=== PATIENT | female | born 1940 | race Caucasian/White ===

== ENCOUNTER 2019-12-02 17:19 | Outpatient (RCR) | payer MEDICARE, SELFPAY ==
[2019-09-30 15:13] LABS: INR 2.8; Prothrombin Time 28.9 Seconds (11.1-14.7)
[2019-11-02 13:27] LABS: Prothrombin Time 30.9 Seconds (11.1-14.7)
[2019-12-02 18:01] LABS: INR 2.6; Prothrombin Time 27.4 Seconds (11.1-14.7)
== END 2019-12-29 23:59 | disposition home or self-care (01) ==
LOC: ANHLAB 17:19
PROVIDERS: PCP Family Medicine Adolescent Medicine; Visit Provider Specialist
DX: Z51.81 Encounter for therapeutic drug level monitoring (principal); I48.20 Chronic atrial fibrillation, unspecified; Z79.01 Long term (current) use of anticoagulants
CPT/HCPCS: 36415; 85610

== ENCOUNTER 2020-02-10 15:24 | Outpatient (RCR) | payer MEDICARE, SELFPAY ==
[2020-01-06 17:22] LABS: INR 2.5; Prothrombin Time 26.7 Seconds (11.1-14.7)
[2020-02-10 16:00] LABS: INR 2.3; Prothrombin Time 25.2 Seconds (11.1-14.7)
== END 2020-04-05 23:59 | disposition home or self-care (01) ==
LOC: ANHLAB 15:24
PROVIDERS: PCP Family Medicine Adolescent Medicine; Visit Provider Specialist
DX: Z51.81 Encounter for therapeutic drug level monitoring (principal); I48.20 Chronic atrial fibrillation, unspecified; Z79.01 Long term (current) use of anticoagulants
CPT/HCPCS: 36415; 85610

== ENCOUNTER 2020-07-10 13:43 | Outpatient (RCR) | payer MEDICARE, SELFPAY ==
[2020-04-21 12:29] LABS: INR 2.8; Prothrombin Time 29.3 Seconds (11.1-14.7)
[2020-07-10 14:33] LABS: INR 2.8; Prothrombin Time 28.7 Seconds (11.1-14.7)
[2020-07-10 14:41] LABS: Alanine Aminotransferase 17 U/L (4-35); Albumin Level 3.3 g/dL (3.5-5.1); Alkaline Phosphatase 83 U/L (38-126); Anion Gap 4 mmol/L (8-16); Aspartate Amino Transferase 22 U/L (14-36); Bilirubin,Total 0.5 mg/dL (0.2-1.3); Blood Urea Nitrogen 26 mg/dL (7-17); Calcium 9.4 mg/dL (8.4-10.2); Carbon Dioxide 33 mmol/L (22-30); Chloride 102 mmol/L (98-107); Cholesterol 131 mg/dL (0-200); Estimated Glomerular Filt Rate > 60; Glucose 97 mg/dL (65-105); HDL Direct 38 mg/dL; Sodium 139 mmol/L (137-145); Triglycerides 110 mg/dL (<150)
[2020-07-10 14:51] LABS: LDL Cholesterol Direct 66 mg/dL
== END 2020-07-20 23:59 | disposition home or self-care (01) ==
LOC: ANHLAB 13:43
PROVIDERS: PCP Family Medicine Adolescent Medicine; Referring Provider Family Medicine Adolescent Medicine; Visit Provider Specialist
DX: I48.20 Chronic atrial fibrillation, unspecified (principal); Z79.01 Long term (current) use of anticoagulants; I10 Essential (primary) hypertension; E78.00 Pure hypercholesterolemia, unspecified; R73.01 Impaired fasting glucose
CPT/HCPCS: 36415; 80053; 80061; 83036; 85610

== ENCOUNTER 2020-10-31 11:33 | Outpatient (RCR) | payer MEDICARE, SELFPAY ==
[2020-08-15 14:53] LABS: Hemoglobin A1C 5.1 % (<5.7)
[2020-08-15 14:54] LABS: INR 2.6
[2020-08-15 14:59] LABS: Alanine Aminotransferase 16 U/L (4-35); Albumin Level 3.6 g/dL (3.5-5.1); Alkaline Phosphatase 78 U/L (38-126); Anion Gap 4 mmol/L (8-16); Aspartate Amino Transferase 22 U/L (14-36); Bilirubin,Total 0.4 mg/dL (0.2-1.3); Blood Urea Nitrogen 29 mg/dL (7-17); Calcium 9.5 mg/dL (8.4-10.2); Carbon Dioxide 30 mmol/L (22-30); Chloride 103 mmol/L (98-107); Cholesterol 144 mg/dL (0-200); Estimated Glomerular Filt Rate > 60; Glucose 93 mg/dL (65-105); HDL Direct 39 mg/dL; Potassium 4.2 mmol/L (3.4-5.0); Sodium 137 mmol/L (137-145); Triglycerides 102 mg/dL (<150)
[2020-08-15 15:11] LABS: LDL Cholesterol Direct 72 mg/dL
[2020-10-04 16:19] LABS: Prothrombin Time 23.3 Seconds (11.1-14.7)
[2020-10-04 16:22] LABS: Alanine Aminotransferase 21 U/L (4-35); Albumin Level 3.7 g/dL (3.5-5.1); Alkaline Phosphatase 89 U/L (38-126); Anion Gap 5 mmol/L (8-16); Aspartate Amino Transferase 28 U/L (14-36); Bilirubin,Total 0.6 mg/dL (0.2-1.3); Blood Urea Nitrogen 30 mg/dL (7-17); Calcium 9.8 mg/dL (8.4-10.2); Carbon Dioxide 35 mmol/L (22-30); Chloride 101 mmol/L (98-107); Cholesterol 140 mg/dL (0-200); Estimated Glomerular Filt Rate > 60; Glucose 97 mg/dL (65-105); HDL Direct 39 mg/dL; Potassium 4.1 mmol/L (3.4-5.0); Sodium 141 mmol/L (137-145); Triglycerides 83 mg/dL (<150)
[2020-10-04 16:33] LABS: LDL Cholesterol Direct 71 mg/dL
[2020-10-04 18:05] LABS: Hemoglobin A1C 4.9 % (<5.7)
[2020-10-31 12:22] LABS: INR 2.2; Prothrombin Time 25.3 Seconds (11.1-14.7)
== END 2020-11-13 23:59 | disposition home or self-care (01) ==
LOC: ANHLAB 11:33
PROVIDERS: PCP Family Medicine Adolescent Medicine; Visit Provider Specialist
DX: Z51.81 Encounter for therapeutic drug level monitoring (principal); I10 Essential (primary) hypertension; I48.20 Chronic atrial fibrillation, unspecified; E78.00 Pure hypercholesterolemia, unspecified; R73.01 Impaired fasting glucose; Z79.01 Long term (current) use of anticoagulants
CPT/HCPCS: 36415; 80053; 80061; 83036; 85610

== ENCOUNTER 2021-01-21 13:46 | Outpatient (RCR) | payer MEDICARE, SELFPAY ==
[2020-12-06 17:05] LABS: INR 2.6; Prothrombin Time 28.2 Seconds (11.1-14.7)
[2021-01-21 14:41] LABS: INR 1.8; Prothrombin Time 21.4 Seconds (11.1-14.7)
== END 2021-03-06 23:59 | disposition home or self-care (01) ==
LOC: ANHLAB 13:46
PROVIDERS: PCP Family Medicine Adolescent Medicine; Visit Provider Specialist
DX: Z51.81 Encounter for therapeutic drug level monitoring (principal); I48.20 Chronic atrial fibrillation, unspecified; Z79.01 Long term (current) use of anticoagulants
CPT/HCPCS: 36415; 85610

== ENCOUNTER 2021-10-01 14:32 | Outpatient (CLI) | payer MEDICARE, SELFPAY ==
--- NOTE | ~2021-10-01 | MR_ITS ---
EXAMINATION: MR lumbar spine [facility] EXAM DATE: 10/01/2021 15:40 INDICATION: Right-sided lumbar radiculopathy. TECHNIQUE: Multi-sequential, multiplanar MR images of the lumbar spine were obtained without contrast . Sagittal T1, T2, T2 fat saturation images. Axial T2 weighted images. There is no prior study for comparison. FINDINGS: There is moderate thoracolumbar dextroscoliosis. The conus medullaris terminates at the L2 level and has normal signal intensity and morphology. There is 4 mm anterolisthesis L5 on S1 without spondylolysis suspected. The vertebral bodies are otherwise aligned. Moderate to severe disc disease from L2 through S1. There are no focal marrow signal abnormalities suspicious for malignancy or acut e fracture. Paraspinal soft tissue is unremarkable. Level by level evaluation: T12-L1: Disc does not extend beyond the endplate margin. Facet arthropathy: Mild. Neural foraminal stenosis: No stenosis. Central canal stenosis: No stenosis. L1-L2: Disc does not extend beyond the endplate margin. Facet arthropathy: Mild. Neural foraminal stenosis: No stenosis. Central canal stenosis: No stenosis. L2-L3: There is a mild to moderate diffuse disc bulge. Facet arthropathy: Mild. Neural foraminal stenosis: Mild to moderate left. Central canal stenosis: Mild. L3-L4: There is a mild to moderate diffuse disc bulge. Facet arthropathy: Mild to moderate. Neural foraminal stenosis: Mild to moderate left. Central canal stenosis: Mild. L4-L5: There is a mild to moderate diffuse disc bulge. Facet arthropathy: Mild to moderate. Neural foraminal stenosis: Moderate to severe right, mild left. Central canal stenosis: Mild. L5-S1: There is a mild diffuse disc bulge. Facet arthropathy: Severe. Neural foraminal stenosis: Mild to moderate right, mild left. Central canal stenosis: Mild. IMPRESSION: 1. Moderate thoracolumbar dextroscoliosis. 2. Moderate to severe disc disease L2-S1. 3. L5-S1 grade 1 anterolisthesis without spondylolysis. 4. L4-5 moderate to severe right neural foraminal stenosis. Reviewed, dictated and finalized at location A.
== END 2021-10-01 14:33 | disposition home or self-care (01) ==
PROVIDERS: PCP Family Medicine Adolescent Medicine; Visit Provider Family Medicine Adolescent Medicine
DX: M51.37 Other intervertebral disc degeneration, lumbosacral region (principal); M47.26 Other spondylosis with radiculopathy, lumbar region
CPT/HCPCS: 72148

== ENCOUNTER 2021-10-15 13:08 | Outpatient (CLI) | payer MEDICARE, SELFPAY ==
[2021-10-15 14:02] LABS: INR 1.1; Prothrombin Time 13.9 Seconds (11.1-14.7)
== END 2021-10-15 13:09 | disposition home or self-care (01) ==
LOC: ANHLAB 10-29 14:42
PROVIDERS: PCP Family Medicine Adolescent Medicine; Visit Provider Nurse Practitioner Family
DX: Z51.81 Encounter for therapeutic drug level monitoring (principal); Z79.01 Long term (current) use of anticoagulants
CPT/HCPCS: 36415; 85610

== ENCOUNTER 2021-10-29 14:44 | Outpatient (CLI) | payer MEDICARE, SELFPAY ==
[2021-10-29 15:29] LABS: INR 1.2; Prothrombin Time 14.6 Seconds (11.1-14.7)
== END 2021-10-29 14:45 | disposition home or self-care (01) ==
LOC: ANHLAB 14:48
PROVIDERS: PCP Family Medicine Adolescent Medicine; Visit Provider Nurse Practitioner Family
DX: Z79.01 Long term (current) use of anticoagulants (principal)
CPT/HCPCS: 36415; 85610

== ENCOUNTER 2021-11-11 14:08 | Outpatient (RCR) | payer MEDICARE, SELFPAY ==
[2021-11-11 15:01] LABS: INR 1.4
== END 2022-02-09 23:59 | disposition home or self-care (01) ==
LOC: ANHLAB 14:08
PROVIDERS: PCP Family Medicine Adolescent Medicine; Visit Provider Specialist
DX: I48.91 Unspecified atrial fibrillation (principal)
CPT/HCPCS: 36415; 85610

== ENCOUNTER 2022-05-26 13:25 | Outpatient (CLI) | payer MEDICARE, SELFPAY ==
[2022-05-26 14:13] LABS: Hematocrit 43.9 % (37.0-47.0); Hemoglobin 14.4 g/dL (12.0-15.0); Mean Corpuscular HGB Conc 32.8 g/dl (32-36); Mean Corpuscular Hemoglobin 29.4 pg (26-34); Mean Corpuscular Volume 89.6 fl (80-100); Mean Platelet Volume 12.1 fl (7.4-10.4); Platelet Count Result 173 k/mm3 (150-375); Red Cell Distribution Width 13.7 % (11.5-14.5); White Blood Count 7.5 K/mm3 (4.5-10.0)
[2022-05-26 14:27] LABS: Hemoglobin A1C 5.1 % (<5.7)
== END 2022-05-26 13:26 | disposition home or self-care (01) ==
PROVIDERS: PCP Family Medicine Adolescent Medicine; Referring Provider Specialist; Visit Provider Family Medicine Adolescent Medicine
DX: E78.00 Pure hypercholesterolemia, unspecified (principal); I10 Essential (primary) hypertension; I48.20 Chronic atrial fibrillation, unspecified; R73.01 Impaired fasting glucose; Z79.01 Long term (current) use of anticoagulants; E66.01 Morbid (severe) obesity due to excess calories
CPT/HCPCS: 36415; 83036; 85027

== ENCOUNTER 2022-09-10 10:40 | Outpatient (CLI) | payer MEDICARE, SELFPAY ==
[2022-09-10 11:17] LABS: INR 1.1; Prothrombin Time 13.6 Seconds (11.1-14.7)
== END 2022-09-10 10:41 | disposition home or self-care (01) ==
LOC: ANHLAB 10:45
PROVIDERS: PCP Family Medicine Adolescent Medicine; Visit Provider Nurse Practitioner Family
DX: Z51.81 Encounter for therapeutic drug level monitoring (principal); Z79.01 Long term (current) use of anticoagulants
CPT/HCPCS: 36415; 85610

== ENCOUNTER 2023-05-09 19:17 | Inpatient (IN) | payer MEDICARE, SELFPAY ==
--- NOTE | ~2023-05-09 | XR_ITS ---
EXAMINATION: XR chest 1V portable INDICATION: Transient alteration of awareness TECHNIQUE: Portable AP chest at 2019 hours COMPARISON: 04/02/2007 FINDINGS: Cardiomegaly is noted. The lungs are free of acute opacities. No pleural effusion or pneumo thorax. There is a right subclavian Port-A-Cath. Severe thoracic spondylosis is noted. IMPRESSION: 1. Cardiomegaly. Reviewed, dictated and finalized at location F. IMPRESSION: 1. Cardiomegaly.
--- NOTE | ~2023-05-09 | CT_ITS ---
EXAMINATION: CT brain wo con INDICATION: Headache COMPARISON: None TECHNIQUE: Standard unenhanced head CT. The dose-length product (DLP) was 605.33 mGy-cm. The mA was a djusted according to patient size. Iterative reconstruction technique was employed. FINDINGS: There is no acute intraparenchymal hemorrhage. No evidence of mass lesion. No evidence of a cute infarction. There is mild periventricular and subcortical hypodensity probably related to small vessel ischemic disease. There is mild prominence of the sulci and ventricles related to cerebral atr ophy. Intracranial calcified cerebral atherosclerosis is noted. There are no extra-axial collections. There is no mass effect or midline shift. Changes in the globes are likely from ocular lens surgery. The visualized sinuses and mastoid air cells are well aerated. IMPRESSION: 1. No acute intracranial abnormality. 2. Age related findings. Reviewed, dictated and finalized at location F.
[2023-05-09 19:25] VITALS: BP 227/98; PULSE 98; RESP 26; TEMP 36.6; O2SAT 96
[2023-05-09 19:30] VITALS: PULSE 81
[2023-05-09 19:31] VITALS: RESP 13
--- NOTE | 2023-05-09 19:35 | ED.OVERDOSE ---
HPI - Overdose General Chief Complaint: Overdose Stated Complaint: difficult to rouse Time Seen by Provider: 05/09/23 19:34 Source: patient, family and EMS Mode of arrival: EMS Limitations: physical limitation History of Present Illness HPI Narrative: Patient is 83 years old white female who came to the emergency room by ambulance with her 2 daughters who is telling me that patient probably had overdose on 2 of her medications. No weakness that the patient had any 2 tablets for many minutes and. Patient started on Tessalon yesterday for coughing 200 3 times daily. Patient does not know if she started last night or not if she took 1 tablet or 2 tablets today or not basically does not know. Neither the daughter is. Patient finished eating, was sitting on the table then dropped her spoon and tilted to the right side. Her daughter tried to wake her up calling her name screaming at her without respond for roughly 5 minutes then woke up and replied what is going on, why you are screaming at me. Currently patient is awake, alert and oriented x3 does not know the name of the president. She denies any symptoms she is telling me that she had no new changes compared to before. Patient is wheelchair-bound for the last 2 years, lives with her daughters, managing her medications by herself.. When I showed the patient the bottles of medicine, to see which one she took, could not see it and was not able to read it because of vision problem which is chronic.. Basically there is no witnessed that the patient had overdose, patient cannot see the name of the medicine on the bottles, does not remember which bottle she took 2 tablets or not. . Related Data Home Medications Medication Instructions Recorded Confirmed furosemide 40 mg tablet 40 mg PO QAM 05/12/22 07/23/22 warfarin 5 mg tablet See Rx Instructions PO DAILY 05/12/22 07/23/22 Allergies Allergy/AdvReac Type Severity Reaction Status Date / Time cefprozil AdvReac Severe Diarrhea Verified 05/09/23 21:27 azithromycin [From Zithromax] AdvReac Unknown Diarrhea Verified 05/09/23 21:27 Review of Systems Review of Systems: All systems reviewed & are unremarkable except as noted in HPI and below PMFSH Past Medical History Medical History History of endometrial cancer Surgical History Surgical History History of cholecystectomy (2010) History of hysterectomy for cancer History of laparoscopic cholecystectomy Family History Family History Father Cerebrovascular accident Other Family history of cardiovascular disease Hypertension Social History Social History Smoking status: Never smoker Second hand tobacco smoke exposure: No Alcohol intake: never Substance use: never Substance use type: does not use Living arrangements: with family Occupation/Education: retired Gender identity (if verbalized by the patient): Female Sexual Orientation (if Verbalized by the Patient): Straight or Heterosexual Spiritual care concerns: No Agree to blood products: Yes Exam Narrative: General appearance: Well-developed, well-nourished, obese, looks lethargic Skin: Normal color Head: Normocephalic, nontraumatic Eyes: Clear conjunctiva ENT: Oropharynx normal, ears normal, nose normal Neck: Supple, nontender Chest and respiratory: Airway patent, no respiratory distress, no accessory muscle use Heart: Regular rate/rhythm Abdomen: Soft, nontender, no organomegaly, quiet bowel sounds Vascular: Normal peripheral pulses, normal capillary refill. Musculoskeletal: Normal range of motion, nontender back Neurologic: Alert and oriented ?3, [employer] is normal as tested, no gross motor deficit
--- NOTE | 2023-05-09 20:08 | ECG_ITS ---
Measurements Intervals Freedom Rate: 75 P: WA: 0 QRS: -49 QRSD: 110 T: 29 QT: 397 QTc: 444 Interpretive Statements ATRIAL FIBRILLATION MINIMAL VOLTAGE CRITERIA FOR LVH, CONSIDER NORMAL VARIANT [MEETS CRITERIA IN ONE OF: R(aVL), S(V1), R(V5), R(V5/V6)+S(V1)] POSSIBLE ANTERIOR MYOCARDIAL INFARCTION , PROBABLY OLD [30 ms Q WAVE IN V3/V4, OR R < 0.2 mV IN V4] POSSIBLE OLD iNFERIOR MYOCARDIAL INFARCTION NO PREVIOUS ECG AVAILABLE FOR COMPARISON Electronically Signed On 05-10-2023 8:36:20 CDT by Hyun Franklin M.D.
[2023-05-09] MEDS: LABETALOL HCL INJ 100 MG/20 ML VIAL 20 MG IV PUSH (22:04)
[2023-05-09 22:11] VITALS: BP 144/80; PULSE 74; RESP 17; O2SAT 93
[2023-05-09 23:07] LABS: Basophils Absolute Auto 0.1 K/mm3 (0.0-0.1); Basophils Percent Auto 0.8 % (0.2-1.2); Eosinophils Absolute Auto 0.2 K/mm3 (0-0.3); Eosinophils Percent Auto 2.4 % (0-4.4); Hematocrit 47.2 % (37.0-47.0); Hemoglobin 15.5 g/dL (12.0-15.0); Immature Granulocyte Absolute 0.02 K/mm3 (0.00-0.031); Immature Granulocyte Percent A 0.3 % (0-0.5); Lymphocytes Absolute Auto 0.68 K/mm3 (0.9-3.2); Lymphocytes Percent Auto 9.3 % (18.3-44.2); Mean Corpuscular HGB Conc 32.8 g/dl (32-36); Mean Corpuscular Hemoglobin 28.2 pg (26-34); Mean Platelet Volume 11.9 fl (7.4-10.4); Monocytes Absolute Auto 0.4 K/mm3 (0.1-0.6); Neutrophils Percent Auto 82.2 % (45.5-73.1); Platelet Count Result 165 k/mm3 (150-375); Red Blood Count 5.49 M/mm3 (4.2-5.4); Red Cell Distribution Width 15.5 % (11.5-14.5); White Blood Count 7.4 K/mm3 (4.5-10.0)
[2023-05-09 23:21] LABS: Alanine Aminotransferase 27 U/L (6-35); Albumin Level 3.7 g/dL (3.5-5.1); Alkaline Phosphatase 95 U/L (38-126); Anion Gap 0 mmol/L (8-16); Aspartate Amino Transferase 29 U/L (14-36); Bilirubin,Total 0.8 mg/dL (0.2-1.3); Blood Urea Nitrogen 33 mg/dL (7-17); Calcium 9.2 mg/dL (8.4-10.2); Carbon Dioxide 38 mmol/L (22-30); Chloride 97 mmol/L (98-107); Estimated CRCL calculation 73 ml/min; Estimated Glomerular Filt Rate > 60; Glucose 124 mg/dL (65-110); Potassium 3.5 mmol/L (3.4-5.0); Sodium 135 mmol/L (137-145)
[2023-05-09 23:25] LABS: INR 2.3; Prothrombin Time 26.7 Seconds (11.1-14.7)
[2023-05-09 23:26] LABS: Partial Thromboplastin Time 36.3 SECONDS (22.3-36.8)
[2023-05-09 23:33] LABS: Troponin I < 0.012 ng/mL (0.000-0.034)
[2023-05-09 23:46] LABS: Ethanol < 10 mg/dL (<10)
[2023-05-10] VITALS (13 sets, daily range): BP systolic 106–173; BP diastolic 65–96; PULSE 58–134; RESP 13–18; TEMP 36.2–36.3; O2SAT 93–98; BMI 41.5
--- NOTE | 2023-05-10 02:35 | PC.NURSE ---
Pt was straight catheterized and no urine was produced. Straight cath was left in for an hour to drain bladder, not enough urine was produced for testing. notified.
--- NOTE | 2023-05-10 03:35 | ADMGEN ---
This patient, Makenzie Benson, was admitted to 2 Medical Room 242-. Patient/family oriented to hospital policies and general routines including ID bracelet, bed and alarms, visiting hours, pain management, procedures, bathroom and other care routines, personal items, smoking policy, room service/diet, and visiting hours. Information on how to activate the Rapid Response Team has been discussed. Patient/Family are encouraged to report perceived risks to care and to ask questions if they do not understand what they are told or what they should do.
[2023-05-10] MEDS: SODIUM CHLORIDE 0.9% IV 1,000 ML 100 ML IV CONT ×2 (09:36→20:24)
[2023-05-10] MEDS: hydroCHLOROthiazide 25 MG TABLET PO (09:37)
[2023-05-10] MEDS: IRBESARTAN 150 MG TABLET 300 MG PO (09:37)
[2023-05-10] MEDS: MELOXICAM 7.5 MG TABLET 15 MG PO (09:37)
[2023-05-10] MEDS: oxyBUTYnin CHLORIDE XL 5 MG TAB.ER.24 10 MG PO (09:38)
[2023-05-10] MEDS: POTASSIUM CHLORIDE 20 MEQ ER TABLET PO (09:38)
--- NOTE | 2023-05-10 12:51 | PM.IMHP ---
H&P: HPI History of Present Illness Date/Time: 05/10/23 12:51 Chief Complaint: Difficulty arousing, near-syncope Narrative: This is an 83-year-old female with past medical history hypertension, vertigo, osteopenia, chronic AFib, and venous insufficiency the presented to the ED on 05/09/2023 due to being difficult to arouse. Patient's daughter believes that she overdosed on 2 of her medications as she took yesterday. daughter is unsure whether the patient took 1 or 2 tablets or not. Patient recently prescribed Tessalon Perles for coughing and she also takes diazepam. These are the medications in question. Daughters did not witness the overdose . Patient alert and oriented x4. Patient chronically wheelchair-bound and lives with her daughters but manages her own medications. Patient does have visual problems and unable to state the names of her medications on the bottles per ER chart. the daughter stated that she was very difficult to arouse and could not get her to respond for approximately 5 minutes. When the patient woke up she was alert and oriented. head CT revealed no acute intracranial abnormality. Chest x-ray revealed cardiomegaly. Patient admitted into observation. Alcohol level less than 10. Ordered urine drug screen and UA. Got notified by the nurse that patient had episode of bradycardia in the 30s for approximately 1 minute while sleeping. Will order ApneaLink an echocardiogram. Patient was able to arouse while she had heart rate in the 30s. On reviewing the patient she stated that she feels fine and she is feeling herself. She denies nausea, vomiting, chest pain, shortness a breath, dizziness, confusion, body aches and chills. Review of Systems Review of Systems: All systems reviewed & are unremarkable except as noted in HPI and below PMFSH Past Medical History Medical History History of endometrial cancer Surgical History Surgical History History of cholecystectomy (2010) History of hysterectomy for cancer History of laparoscopic cholecystectomy Family History Family History Father Family history of cardiovascular disease Hypertension Cerebrovascular accident Social History Social History Smoking status: Never smoker Second hand tobacco smoke exposure: No Alcohol intake: never Substance use: never Substance use type: does not use Lack of Transportation: No Lack of Food: Never True Current Housing: I Have Housing Concerned About Future Housing: No Difficulty Paying Gas/Electric Bills: No Difficulty Paying for Meds: No Currently Unemployed: No Education: Grade School Difficulty w/ Childcare or Family Care: No Living arrangements: with family Occupation/Education: retired Gender identity (if verbalized by the patient): Female Sexual Orientation (if Verbalized by the Patient): Straight or Heterosexual Spiritual care concerns: No Agree to blood products: Yes Meds Home Medications and Allergies Home Medications Medication Instructions Recorded Confirmed Type potassium chloride 20 mEq 20 meq PO DAILY #90 tabs 09/29/22 05/10/23 Rx tablet,extended release hydrochlorothiazide 25 mg tablet 25 mg PO DAILY #90 tabs 10/13/22 05/10/23 Rx irbesartan 300 mg tablet 300 mg PO DAILY #90 tabs 10/13/22 05/10/23 Rx meloxicam 15 mg tablet 15 mg PO DAILY #90 tabs 11/28/22 05/10/23 Rx calcitriol 0.5 mcg capsule 0.5 mcg PO DAILY #90 caps 02/10/23 05/10/23 Rx meclizine 25 mg tablet 25 mg PO QID PRN dizziness #35 tabs 02/12/23 05/10/23 Rx oxybutynin chloride 10 mg 10 mg PO DAILY #90 tabs 03/02/23 05/10/23 Rx tablet,extended release 24 hr diazepam 2 mg tablet 2 mg PO BID #60 tabs 04/13/23 05/10/23 Rx benzonatate 200 mg capsule 200 mg PO TID
[2023-05-10 13:47] LABS: Thyroid Stimulating Hormone Reflex 0.595 uIU/mL (0.465-4.68)
[2023-05-10 13:58] LABS: Benzodiazepines Screen Urine Positive (Negative)
[2023-05-10 14:03] LABS: Barbiturate Screen Urine Negative (Negative)
[2023-05-10 14:04] LABS: Appearance Urine Clear (Clear); Bacteria Urine 4+ /hpf; Bilirubin Urine Negative (Negative); Blood Urine Negative (Negative); Color Urine Yellow (Yellow); Glucose Urine UA Negative (Negative); Ketones Urine Negative (Negative); Leukocyte Esterase Ur Negative LEU/UL (Negative); Nitrate Urine Positive (Negative); Non Pathogenic Casts 0-2; Protein Urine Negative (Negative); RBC Urine 0-2 /hpf (0-2); Specific Grav Ur 1.011 (1.001-1.035); Squamous Epithelial Cell Urine None seen /hpf (Few); WBC Urine 0-5 /hpf
[2023-05-10 14:07] LABS: Add Urine Microscopic? YES
[2023-05-10 14:10] LABS: Amphetamine Screen Urine Negative (Negative); Cannabinoid Screen Urine Negative (Negative); Cocaine Screen Urine Negative (Negative); Methadone Screen Urine Negative (Negative); Opiate Screen Urine Negative (Negative); Phencyclidine Screen Urine Negative (Negative)
[2023-05-10] MEDS: WARFARIN (*PBKC) 5 MG TABLET PO (17:52)
[2023-05-11] VITALS (15 sets, daily range): BP systolic 133–193; BP diastolic 62–98; PULSE 72–92; RESP 15–20; TEMP 36–37; O2SAT 94–98
--- NOTE | 2023-05-11 | ECHO_ITS ---
Patient Info Name: Makenzie Benson Age: 83 years : 1940 Gender: Female Ht: 62 in Wt: 227 lbs BSA: 2.18 m2 HR: 82 bpm BP: 145 / 98 mmHg Technical Quality: Fair Exam Date: 05/11/2023 9:24 AM Exam Location: [facility] Pulmonary Exam Room: 242 Patient Status: Inpatient Admit Date: 05/10/2023 Staff Ordering Physician: Sofya Lawson PA-C [employer] Specialist: Esthela Bass RDCS Attending Provider: Radha Xavier DO Referring Physician: Renny COATS; Exam Type: CA echo dop color flow w con Study Info Indications - bradycardia Complete two-dimensional, color flow and Doppler transthoracic echocardiogram is performed with contrast to opacify the left ventricle and to improve the deliniation of the left ventricle endocardial borders. Contrast/Agitated Saline Contrast/Ag. Saline: Definity Amount: 2.00 ml Administered By: Esthela Bass [facility] Existing IV Access: Yes IV Access Condition: patent with no signs of infiltration Summary 1. Definity contrast administered improved wall motion interpretation. 2. Left ventricular chamber dimension is normal. 3. Left ventricular systolic function is normal, estimated at 60-65%. 4. The left ventricular diastolic function is abnormal. 5. E/e' 14 is mildly elevated. 6. Atrial fibrillation. 7. Left atrial chamber dimension is moderately enlarged. 8. There is mild aortic valve sclerosis. 9. There is mild mitral valve regurgitation. 10. There is mild tricuspid valve regurgitation. 11. Mild pulmonary hypertension, estimated pulmonary arterial systolic pressure is 42 mmHg. 12. There is trace pulmonic regurgitation. Left Ventricle Atrial fibrillation. E/e' 14 is mildly elevated. Definity contrast administered improved wall motion interpretation. Left ventricular chamber dimension is normal. Left ventricular systolic function is normal, estimated at 60-65%. The left ventricular diastolic function is abnormal. Right Ventricle Right ventricular chamber dimension is normal. Right ventricular systolic function is normal. Left Atria Left atrial chamber dimension is moderately enlarged. Right Atria Right atrial chamber dimension is normal. Aortic Valve The aortic valve is trileaflet. There is mild aortic valve sclerosis. There is no aortic valve stenosis. There is no aortic valve regurgitation. Pulmonic Valve There is trace pulmonic regurgitation. Mitral Valve There is no mitral valve stenosis. There is mild mitral valve regurgitation. Tricuspid Valve There is mild tricuspid valve regurgitation. Mild pulmonary hypertension, estimated pulmonary arterial systolic pressure is 42 mmHg. Pericardium/Pleural There is no pericardial effusion. Inferior Vena Cava Normal inferior vena cava with >50% collapse upon inspiration consistent with normal right atrial pressure, 5 mmHg. Aorta The aortic root size at the sinus of Valsalva is normal. Left Ventricular Outflow Tract Name Value Normal LVOT 2D LVOT Diameter 1.96 cm LVOT Doppler LVOT Peak Gradient 7 mmHg LVOT Mean Gradient 5 mmHg LVOT VTI 26.69 cm L
[2023-05-11 06:41] LABS: Basophils Absolute Auto 0.1 K/mm3 (0.0-0.1); Basophils Percent Auto 1.1 % (0.2-1.2); Eosinophils Absolute Auto 0.3 K/mm3 (0-0.3); Eosinophils Percent Auto 4.9 % (0-4.4); Hematocrit 43.2 % (37.0-47.0); Hemoglobin 14.1 g/dL (12.0-15.0); Immature Granulocyte Absolute 0.02 K/mm3 (0.00-0.031); Immature Granulocyte Percent A 0.3 % (0-0.5); Lymphocytes Absolute Auto 0.92 K/mm3 (0.9-3.2); Lymphocytes Percent Auto 14.1 % (18.3-44.2); Mean Corpuscular HGB Conc 32.6 g/dl (32-36); Mean Corpuscular Hemoglobin 28.5 pg (26-34); Mean Corpuscular Volume 87.4 fl (80-100); Mean Platelet Volume 11.5 fl (7.4-10.4); Monocytes Absolute Auto 0.6 K/mm3 (0.1-0.6); Neutrophils Absolute Auto 4.6 K/mm3 (1.3-6.7); Neutrophils Percent Auto 70.6 % (45.5-73.1); Platelet Count Result 145 k/mm3 (150-375); Red Blood Count 4.94 M/mm3 (4.2-5.4); White Blood Count 6.5 K/mm3 (4.5-10.0)
[2023-05-11 06:49] LABS: Alanine Aminotransferase 24 U/L (6-35); Alkaline Phosphatase 73 U/L (38-126); Anion Gap 0 mmol/L (8-16); Aspartate Amino Transferase 24 U/L (14-36); Bilirubin,Total 0.6 mg/dL (0.2-1.3); Blood Urea Nitrogen 29 mg/dL (7-17); Calcium 8.7 mg/dL (8.4-10.2); Carbon Dioxide 35 mmol/L (22-30); Chloride 102 mmol/L (98-107); Estimated CRCL calculation 61 ml/min; Estimated Glomerular Filt Rate > 60; Glucose 88 mg/dL (65-110); Potassium 3.8 mmol/L (3.4-5.0); Sodium 137 mmol/L (137-145)
[2023-05-11 06:54] LABS: INR 2.3; Prothrombin Time 27.1 Seconds (11.1-14.7)
[2023-05-11] MEDS: IRBESARTAN 150 MG TABLET 300 MG PO (08:25)
[2023-05-11] MEDS: hydroCHLOROthiazide 25 MG TABLET PO (08:25)
[2023-05-11] MEDS: calcitrioL 0.25 MCG CAPSULE 0.5 MCG PO (08:25)
[2023-05-11] MEDS: oxyBUTYnin CHLORIDE XL 5 MG TAB.ER.24 10 MG PO (08:26)
[2023-05-11] MEDS: POTASSIUM CHLORIDE 20 MEQ ER TABLET PO (08:26)
[2023-05-11] MEDS: MELOXICAM 7.5 MG TABLET 15 MG PO (08:26)
[2023-05-11] MEDS: PERFLUTREN LIPID MICROSPHERES 1.5 ML VIAL DILUTED TO 10 ML TOTAL VOLUME IV PUSH (09:45)
[2023-05-11] MEDS: SODIUM CHLORIDE 0.9% IV 1,000 ML 100 ML IV CONT (11:49)
--- NOTE | 2023-05-11 13:00 | P.PNIM_ITS ---
Progress Note: A&P Assessment and Plan (1) Syncope and collapse: Code(s): R55 - Syncope and collapse Status: Acute Assessment and Plan: * Presented with difficult to arouse by daughters for approximately 5 minutes * Appears to be an accidental overdose as she was alert and oriented x 4. * Fall precautions initiated * Orthostatics Q shift * UA appears infectious with nitrates and 4+ bacteria * urine drug screen positive for Benzos * Head CT no intracranial abnormality * Chest x-ray cardiomegaly * Troponin within normal limits (2) Bradycardia: Code(s): R00.1 - Bradycardia, unspecified Status: Acute Assessment and Plan: * Noted episode of bradycardia in the 30s while she was sleeping. * Continue tele * ApneaLink does indicate sleep apnea, and hypoxia * Repeat apnealink with 2LNC * Echocardiogram ordered * TSH stable at 0.595 * Consider cardiac consultation if bradycardia persists (3) Hypertension, uncontrolled: Code(s): I10 - Essential (primary) hypertension Status: Chronic Assessment and Plan: * On presentation patient's blood pressure was 227/98 and she was given labetalol in the ED * Currently BP is 145/98 * Continue home HCTZ 25mg PO daily, irbesartan 300mg PO daily * Hydralazine p.r.n. for systolic blood pressure greater than 190, or diastolic BP >90 * Trend BP * adjust therapy as indicated (4) Chronic atrial fibrillation, unspecified: Code(s): I48.20 - Chronic atrial fibrillation, unspecified Status: Chronic Assessment and Plan: * on warfarin, continue * Current INR 2.3 * Goal of 2.0-3.0 * Trend INR, and adjust dosing as indicated (5) Abnormal urinalysis: Code(s): R82.90 - Unspecified abnormal findings in urine Status: Acute Assessment and Plan: * UA appears infectious with positives nitrates, 4+ bacteria * Did not reflex for a culture * Collect culture * start patient on ceftriaxone daily * adjust if indicated Time Spent With Patient Time: 48 minutes Time with patient: Greater than 35 minutes Subjective Date/time seen: 05/11/23 1300 Interval history: 05/11/23 1300 patient does not have any complaints at this time. She denies any chest pain, shortness a, nausea,, diarrhea constipation. She does state that she feels like she is back to herself however she does looks to be a little tired. Urine culture did appear to be positive for infection at this time will wait for culture results. If culture comes back tomorrow patient should be stable for discharge tomorrow. 05/10/23? 12:51 This is an 83-year-old female with past medical history hypertension, vertigo, osteopenia, chronic AFib, and venous insufficiency the presented to the ED on 05/09/2023 due to being difficult to arouse.? Patient's daughter believes that she overdosed on 2 of her medications as she took yesterday. ? daughter is unsure whether the patient took 1 or 2 tablets or not.? Patient recently prescribed Tessalon Perles for coughing and she also takes diazepam.? These are the medications in question.? ? Daughters did not witness the overdose .? Patient alert and oriented x4.? Patient chronically wheelchair-bound and lives with her daughters but manages her own medications.? Patient does have visual problems and unable to state the names of her medications on the bottles per ER chart. the daughter stated that she was very difficult to arouse and could not get her to respond
--- NOTE | 2023-05-11 13:00 | PM.IMPN ---
Progress Note: A&P Assessment and Plan (1) Syncope and collapse: Code(s): R55 - Syncope and collapse Status: Acute Assessment and Plan: Presented with difficult to arouse by daughters for approximately 5 minutes Appears to be an accidental overdose as she was alert and oriented x 4. Fall precautions initiated Orthostatics Q shift UA appears infectious with nitrates and 4+ bacteria urine drug screen positive for Benzos Head CT no intracranial abnormality Chest x-ray cardiomegaly Troponin within normal limits (2) Bradycardia: Code(s): R00.1 - Bradycardia, unspecified Status: Acute Assessment and Plan: Noted episode of bradycardia in the 30s while she was sleeping. Continue tele ApneaLink does indicate sleep apnea, and hypoxia Repeat apnealink with 2LNC Echocardiogram ordered TSH stable at 0.595 Consider cardiac consultation if bradycardia persists (3) Hypertension, uncontrolled: Code(s): I10 - Essential (primary) hypertension Status: Chronic Assessment and Plan: On presentation patient's blood pressure was 227/98 and she was given labetalol in the ED Currently BP is 145/98 Continue home HCTZ 25mg PO daily, irbesartan 300mg PO daily Hydralazine p.r.n. for systolic blood pressure greater than 190, or diastolic BP >90 Trend BP adjust therapy as indicated (4) Chronic atrial fibrillation, unspecified: Code(s): I48.20 - Chronic atrial fibrillation, unspecified Status: Chronic Assessment and Plan: on warfarin, continue Current INR 2.3 Goal of 2.0-3.0 Trend INR, and adjust dosing as indicated (5) Abnormal urinalysis: Code(s): R82.90 - Unspecified abnormal findings in urine Status: Acute Assessment and Plan: UA appears infectious with positives nitrates, 4+ bacteria Did not reflex for a culture Collect culture start patient on ceftriaxone daily adjust if indicated Time Spent With Patient Time: 48 minutes Time with patient: Greater than 35 minutes Subjective Date/time seen: 05/11/23 1300 Interval history: 05/11/23 1300 patient does not have any complaints at this time. She denies any chest pain, shortness a, nausea,, diarrhea constipation. She does state that she feels like she is back to herself however she does looks to be a little tired. Urine culture did appear to be positive for infection at this time will wait for culture results. If culture comes back tomorrow patient should be stable for discharge tomorrow. 05/10/23? 12:51 This is an 83-year-old female with past medical history hypertension, vertigo, osteopenia, chronic AFib, and venous insufficiency the presented to the ED on 05/09/2023 due to being difficult to arouse.? Patient's daughter believes that she overdosed on 2 of her medications as she took yesterday. ? daughter is unsure whether the patient took 1 or 2 tablets or not.? Patient recently prescribed Tessalon Perles for coughing and she also takes diazepam.? These are the medications in question.? ? Daughters did not witness the overdose .? Patient alert and oriented x4.? Patient chronically wheelchair-bound and lives with her daughters but manages her own medications.? Patient does have visual problems and unable to state the names of her medications on the bottles per ER chart. the daughter stated that she was very difficult to arouse and could not get her to respond for approximately 5 minutes.? When the patient woke up she was alert and oriented. head CT revealed no acute intracranial abnormality.? Chest x-ray revealed cardiomegaly.? Patient admitted into observation.? Alcohol level less than 10.? Ordered urine drug screen and UA.? Got notified by the nurse that patient had episode of bradycardia in the 30s for approximately 1 minute while sleeping.? Will order ApneaLink an echocardiogram.? Patient was able to arouse while she? had h
--- NOTE | 2023-05-11 14:29 | PCCCNOTE ---
On 05/11/23, the student, [Lizzy An], provided care and completed [facility] documentation on this patient. I have reviewed the student's documentation and agree with the findings.
[2023-05-11] MEDS: WARFARIN (*PBKC) 5 MG TABLET PO (17:08)
[2023-05-12] VITALS: PULSE 81
[2023-05-12 03:31] VITALS: BP 143/90; PULSE 88; RESP 20; TEMP 36.1; O2SAT 100
[2023-05-12 04:00] VITALS: PULSE 70
[2023-05-12 05:26] LABS: Basophils Absolute Auto 0.1 K/mm3 (0.0-0.1); Basophils Percent Auto 0.8 % (0.2-1.2); Eosinophils Absolute Auto 0.3 K/mm3 (0-0.3); Eosinophils Percent Auto 5.4 % (0-4.4); Hematocrit 42.9 % (37.0-47.0); Hemoglobin 13.7 g/dL (12.0-15.0); Immature Granulocyte Absolute 0.01 K/mm3 (0.00-0.031); Immature Granulocyte Percent A 0.2 % (0-0.5); Lymphocytes Absolute Auto 0.83 K/mm3 (0.9-3.2); Lymphocytes Percent Auto 13.5 % (18.3-44.2); Mean Corpuscular HGB Conc 31.9 g/dl (32-36); Mean Corpuscular Hemoglobin 27.8 pg (26-34); Mean Platelet Volume 12.3 fl (7.4-10.4); Monocytes Absolute Auto 0.6 K/mm3 (0.1-0.6); Monocytes Percent Auto 10.2 % (2.6-8.5); Neutrophils Absolute Auto 4.3 K/mm3 (1.3-6.7); Neutrophils Percent Auto 69.9 % (45.5-73.1); Platelet Count Result 149 k/mm3 (150-375); Red Blood Count 4.93 M/mm3 (4.2-5.4); Red Cell Distribution Width 15.9 % (11.5-14.5); White Blood Count 6.2 K/mm3 (4.5-10.0)
[2023-05-12 05:36] LABS: INR 2.3; Prothrombin Time 27.3 Seconds (11.1-14.7)
[2023-05-12 05:54] LABS: Alanine Aminotransferase 25 U/L (6-35); Albumin Level 3.1 g/dL (3.5-5.1); Alkaline Phosphatase 55 U/L (38-126); Anion Gap 0 mmol/L (8-16); Aspartate Amino Transferase 32 U/L (14-36); Bilirubin,Total 0.7 mg/dL (0.2-1.3); Blood Urea Nitrogen 27 mg/dL (7-17); Calcium 8.8 mg/dL (8.4-10.2); Carbon Dioxide 37 mmol/L (22-30); Chloride 101 mmol/L (98-107); Estimated CRCL calculation 83 ml/min; Estimated Glomerular Filt Rate > 60; Glucose 87 mg/dL (65-110); Potassium 4.2 mmol/L (3.4-5.0); Sodium 138 mmol/L (137-145)
[2023-05-12 07:57] VITALS: O2SAT 95
[2023-05-12 08:00] VITALS: O2SAT 95
--- NOTE | 2023-05-12 08:45 | P.DS_ITS ---
DS: Admitting Diagnosis Discharge Date 05/12/23 0845 Admitting Diagnosis UTI, Syncope and collapse DS: Discharge Diagnosis Discharge Diagnosis (1) Syncope and collapse: Code(s): R55 - Syncope and collapse Status: Acute Assessment and Plan: * Presented with difficult to arouse by daughters for approximately 5 minutes * Appears to be an accidental overdose as she was alert and oriented x 4. * Fall precautions initiated * Orthostatics Q shift, negative for hypotension * UA appears infectious with nitrates and 4+ bacteria * urine drug screen positive for Benzos * Head CT no intracranial abnormality * Chest x-ray cardiomegaly * Troponin within normal limits (2) Bradycardia: Code(s): R00.1 - Bradycardia, unspecified Status: Acute Assessment and Plan: * Noted episode of bradycardia in the 30s while she was sleeping. * Continue tele * ApneaLink does indicate sleep apnea, and hypoxia * Repeat apnealink with 2LNC * Echocardiogram ordered * TSH stable at 0.595 * Consider cardiac consultation if bradycardia persists * Resolved (3) Hypertension, uncontrolled: Code(s): I10 - Essential (primary) hypertension Status: Chronic Assessment and Plan: * On presentation patient's blood pressure was 227/98 and she was given labetalol in the ED * Currently BP is 145/98 * Continue home HCTZ 25mg PO daily, irbesartan 300mg PO daily * Hydralazine p.r.n. for systolic blood pressure greater than 190, or diastolic BP >90 * Trend BP * adjust therapy as indicated (4) Chronic atrial fibrillation, unspecified: Code(s): I48.20 - Chronic atrial fibrillation, unspecified Status: Chronic Assessment and Plan: * on warfarin, continue * Current INR 2.3 * Goal of 2.0-3.0 * Trend INR, and adjust dosing as indicated (5) UTI (urinary tract infection): Qualifiers: Hematuria presence: without hematuria Urinary tract infection type: acute cystitis Qualified Code(s): N30.00 - Acute cystitis without hematuria Code(s): N39.0 - Urinary tract infection, site not specified Status: Acute Assessment and Plan: * UA appears infectious with positives nitrates, 4+ bacteria * Did not reflex for a culture * Collect culture, will follow and change antibiotics accordingly * Currently seems to be effective, WBC trending down, mental status improved * Change ceftriaxone to Cefdinir for discharge * adjust if indicated DS: Summary Hospital Course Hospital Course: This is an 83-year-old female with past medical history hypertension, vertigo, osteopenia, chronic AFib, and venous insufficiency the presented to the ED on 05/09/2023 due to being difficult to arouse. It was noted that the patient does take diazepam 2mg PO BID which she is unsure if she took more than what she should of. Mental status has improved, and she is back to baseline. UA did appear infectious with nitrates, and 4+ bacteria. Ceftriaxone was initiated, and changed to PO cefdinir. She is denying any complaints of chest pain, shortness of breath, nausea, vomiting, diarrhea, constipation, weakness or fatigue. She will need an outpatient sleep study to evaluate from sleep apnea, and nocturnal hypoxia. Orthostatic blood pressures were obtained did not show any hypotension. Urine drug screen did come back positive for benzos however she does take diazepam at home. Head CT showed no intracranial abnormality. Chest x-ray showed cardiomegaly. Troponins were n
--- NOTE | 2023-05-12 08:45 | PM.DS ---
DS: Admitting Diagnosis Discharge Date 05/12/23 0845 Admitting Diagnosis UTI, Syncope and collapse DS: Discharge Diagnosis Discharge Diagnosis (1) Syncope and collapse: Code(s): R55 - Syncope and collapse Status: Acute Assessment and Plan: Presented with difficult to arouse by daughters for approximately 5 minutes Appears to be an accidental overdose as she was alert and oriented x 4. Fall precautions initiated Orthostatics Q shift, negative for hypotension UA appears infectious with nitrates and 4+ bacteria urine drug screen positive for Benzos Head CT no intracranial abnormality Chest x-ray cardiomegaly Troponin within normal limits (2) Bradycardia: Code(s): R00.1 - Bradycardia, unspecified Status: Acute Assessment and Plan: Noted episode of bradycardia in the 30s while she was sleeping. Continue tele ApneaLink does indicate sleep apnea, and hypoxia Repeat apnealink with 2LNC Echocardiogram ordered TSH stable at 0.595 Consider cardiac consultation if bradycardia persists Resolved (3) Hypertension, uncontrolled: Code(s): I10 - Essential (primary) hypertension Status: Chronic Assessment and Plan: On presentation patient's blood pressure was 227/98 and she was given labetalol in the ED Currently BP is 145/98 Continue home HCTZ 25mg PO daily, irbesartan 300mg PO daily Hydralazine p.r.n. for systolic blood pressure greater than 190, or diastolic BP >90 Trend BP adjust therapy as indicated (4) Chronic atrial fibrillation, unspecified: Code(s): I48.20 - Chronic atrial fibrillation, unspecified Status: Chronic Assessment and Plan: on warfarin, continue Current INR 2.3 Goal of 2.0-3.0 Trend INR, and adjust dosing as indicated (5) UTI (urinary tract infection): Qualifiers: Hematuria presence: without hematuria Urinary tract infection type: acute cystitis Qualified Code(s): N30.00 - Acute cystitis without hematuria Code(s): N39.0 - Urinary tract infection, site not specified Status: Acute Assessment and Plan: UA appears infectious with positives nitrates, 4+ bacteria Did not reflex for a culture Collect culture, will follow and change antibiotics accordingly Currently seems to be effective, WBC trending down, mental status improved Change ceftriaxone to Cefdinir for discharge adjust if indicated DS: Summary Hospital Course Hospital Course: This is an 83-year-old female with past medical history hypertension, vertigo, osteopenia, chronic AFib, and venous insufficiency the presented to the ED on 05/09/2023 due to being difficult to arouse. It was noted that the patient does take diazepam 2mg PO BID which she is unsure if she took more than what she should of. Mental status has improved, and she is back to baseline. UA did appear infectious with nitrates, and 4+ bacteria. Ceftriaxone was initiated, and changed to PO cefdinir. She is denying any complaints of chest pain, shortness of breath, nausea, vomiting, diarrhea, constipation, weakness or fatigue. She will need an outpatient sleep study to evaluate from sleep apnea, and nocturnal hypoxia. Orthostatic blood pressures were obtained did not show any hypotension. Urine drug screen did come back positive for benzos however she does take diazepam at home. Head CT showed no intracranial abnormality. Chest x-ray showed cardiomegaly. Troponins were negative. She did have a bout of bradycardia most likely medication. ApneaLink was performed and did show some nocturnal hypoxia. Will refer patient to outpatient sleep study for further evaluation of sleep apnea and possibly nocturnal hypoxia and need for nocturnal oxygen. Labs and vital signs remained stable today. Patient stable for discharge at this time. Urine culture still pending however will follow from afar and change antibiotics as neede
[2023-05-12] MEDS: calcitrioL 0.25 MCG CAPSULE 0.5 MCG PO (08:49)
[2023-05-12] MEDS: POTASSIUM CHLORIDE 20 MEQ ER TABLET PO (08:50)
[2023-05-12] MEDS: MELOXICAM 7.5 MG TABLET 15 MG PO (08:50)
[2023-05-12] MEDS: hydroCHLOROthiazide 25 MG TABLET PO (08:50)
[2023-05-12] MEDS: oxyBUTYnin CHLORIDE XL 5 MG TAB.ER.24 10 MG PO (08:50)
[2023-05-12] MEDS: IRBESARTAN 150 MG TABLET 300 MG PO (08:50)
[2023-05-12] MEDS: CEFDINIR 300 MG CAPSULE PO (10:55)
== END 2023-05-12 12:24 | disposition home or self-care (01) | DRG 918 ==
LOC: ANHED 19:48 → ANH2MED 05-10 03:23
PROVIDERS: Emergency Medicine; Internal Medicine Critical Care Medicine; Admitting Provider Internal Medicine; Emergency Provider Emergency Medicine; PCP Family Medicine Adolescent Medicine; Visit Provider Nurse Practitioner
DX: T50.905A Adverse effect of unspecified drugs, medicaments and biological substances, initial encounter (principal); N30.00 Acute cystitis without hematuria; I48.20 Chronic atrial fibrillation, unspecified; R00.1 Bradycardia, unspecified; G47.30 Sleep apnea, unspecified; G47.36 Sleep related hypoventilation in conditions classified elsewhere; H53.9 Unspecified visual disturbance; I11.9 Hypertensive heart disease without heart failure; I87.2 Venous insufficiency (chronic) (peripheral); M85.80 Other specified disorders of bone density and structure, unspecified site; Z79.01 Long term (current) use of anticoagulants; Z99.3 Dependence on wheelchair; Z85.42 Personal history of malignant neoplasm of other parts of uterus; Z90.49 Acquired absence of other specified parts of digestive tract; Z90.710 Acquired absence of both cervix and uterus
CPT/HCPCS: 36415; 70450; 71045; 80053; 80307; 81001; 83735; 84443; 84484; 85025; 85610; 85730; 87086; 87088; 93005; 93306; 94762; 96374; 99285; A9270; C8929; G0378; J0696; J7030; Q9957

== ENCOUNTER 2024-05-27 14:34 | Outpatient (CLI) | payer MEDICARE, SELFPAY ==
--- NOTE | ~2024-05-27 | XR_ITS ---
XR chest 2V Ordering provider: Garrick Moore MD History: 84 years Female with . R06.00 - Dyspnea, unspecified . Comparison: May 09, 2023 FINDINGS: MEDIASTINUM: The cardiac silhouette is slightly enlarged. Right Port-A-Cath with the tip overlying th e superior vena cava. LUNGS: No infiltrates, effusions or pneumothorax. Slightly prominent markings in the lower lobes bilaterally. OTHER: No free air under the diaphragm. Degenerative changes with dextroscoliosis. IMPRESSION: No acute cardiopulmonary pathology. Reviewed, dictated and finalized at location A.
== END 2024-05-27 14:35 | disposition home or self-care (01) ==
PROVIDERS: PCP Family Medicine Adolescent Medicine; Visit Provider Family Medicine Adolescent Medicine
DX: R06.00 Dyspnea, unspecified (principal)
CPT/HCPCS: 71046